=== PATIENT | female | born 1980 | race Caucasian/White ===

== ENCOUNTER 2019-01-09 22:17 | Emergency (ER) | payer OTHER ==
[~2019-01-09] VITALS: Ht 149.9 cm; Wt 90.7 kg
[2019-01-09 22:26] VITALS: BP 141/96
== END 2019-01-09 23:13 | disposition home or self-care (01) ==
LOC: ER 22:23
DX: K04.7 Periapical abscess without sinus (principal); K02.9 Dental caries, unspecified

== ENCOUNTER 2020-04-23 18:51 | Emergency (ER) | payer OTHER ==
[~2020-04-23] VITALS: Ht 149.9 cm; Wt 90.7 kg
[2020-04-23 19:30] VITALS: BP 139/93
--- NOTE | 2020-04-23 20:13 | NUR ---
COVID SWAB COLLECTED AND SENT TO LAB
--- NOTE | 2020-04-23 20:38 | NUR ---
Patient discharged to home in stable condition. Written and verbal after care instructions given. Patient verbalizes understanding of instruction.
== END 2020-04-23 20:39 | disposition home or self-care (01) ==
LOC: ER 18:54
DX: B34.9 Viral infection, unspecified (principal); R50.9 Fever, unspecified; Z20.828 Contact with and (suspected) exposure to other viral communicable diseases; R19.7 Diarrhea, unspecified

== ENCOUNTER 2020-04-29 00:54 | Inpatient (IN) | payer OTHER ==
[~2020-04-29] VITALS: Ht 149.9 cm; Wt 93.4 kg
[2020-04-29] MEDS ORDERED: ONDANSETRON HCL/PF 4 MG/2 ML VIAL ONE (01:29)
[2020-04-29] MEDS ORDERED: MORPHINE SULFATE INJ 4 MG/ML DISP.SYRIN ONE (01:29)
[2020-04-29] MEDS ORDERED: IV NS 0.9% 1,000 ML BAG IV ONE (01:30)
[2020-04-29] MEDS ORDERED: MORPHINE SULFATE INJ 2 MG/ML DISP.SYRIN IV ONE (01:30)
[2020-04-29] MEDS ORDERED: ONDANSETRON HCL/PF 4 MG/2 ML VIAL IVP ONE (01:30)
--- NOTE | 2020-04-29 01:35 | NUR ---
DR LUND IS AT THE BEDSIDE FOR EVAL.
--- NOTE | 2020-04-29 01:35 | NUR ---
PT PRESENTED TO THE ER WITH A C/O RLQ INTERMITTENT ABD PAIN. PT STATED THAT THE PAIN WAS SHARP. PT IS C/O PAIN WHEN SHE SITS ON THE GURNEY. PT WAS CONNECTED TO THE MONITOR AND POX. RESP ARE EVEN AND UNLABORED.
--- NOTE | 2020-04-29 01:37 | NUR ---
18G IV STARTED IN LAC. BLOOD WAS DRAWN AND SENT TO LAB.
--- NOTE | 2020-04-29 01:39 | NUR ---
PT REC'D NAUSEA MEDICATION ORDERED. PT DENIES PAIN AT THIS TIME. MORPHINE HELD AT PT'S REQUEST.
[2020-04-29 01:44] LABS: BASOPHILS # (AUTO) 0.1 /CMM (0.0-0.2); BASOPHILS % (AUTO) 0.2 % (0.0-2.0); EOSINOPHILS % (AUTO) 1.3 % (0.0-6.0); HEMATOCRIT 36 % (33-45); HEMOGLOBIN 11.4 g/dL (11.5-14.8); LYMPHOCYTES % (AUTO) 7.5 % (20.0-44.0); MEAN CORPUSCULAR HGB CONC 32 g/dl (31.0-36.0); MEAN CORPUSCULAR VOLUME 73 fL (82-100); MONOCYTES # (AUTO) 0.7 /CMM (0.1-1.30); MONOCYTES % (AUTO) 2.6 % (2.0-12.0); NEUTROPHILS % (AUTO) 88.4 % (43.0-81.0); PLATELET COUNT (AUTO) 755 /CMM (150-450); RED BLOOD CELL COUNT(AUTO) 4.91 MIL/uL (4.0-5.2); WHITE BLOOD COUNT (AUTO) 27.1 K/uL (4.3-11.0)
--- NOTE | 2020-04-29 02:00 | NUR ---
CALLING PT'S DAUGHTER, BHARATH, TO GIVE HER AN UPDATE. BHARATH WAS REACHED AND NOTIFIED.
--- NOTE | 2020-04-29 02:01 | NUR ---
BHARATH CAN BE REACHED AT
[2020-04-29] MEDS ORDERED: IOHEXOL-300 100 ML VIAL IV ONE (02:05)
[2020-04-29 02:06] LABS: APPEARANCE,URINE CLEAR (CLEAR); BILIRUBIN,URINE NEGATIVE (NEGATIVE); BLOOD, URINE NEGATIVE Ery/uL (NEGATIVE); COLOR,URINE YELLOW (YELLOW); KETONES,URINE NEGATIVE (NEGATIVE); LEUKOCYTE ESTERASE ,URINE NEGATIVE (NEGATIVE); NITRITE, URINE NEGATIVE (NEGATIVE); PROTEIN,URINE NEGATIVE (NEGATIVE); UGLUCOSE NEGATIVE (NEGATIVE); UROBILINOGEN,URINE 0.2 EU/dL (0.2)
[2020-04-29] MEDS ORDERED: CT SWABBABLE VALVE TRANS SET 1 EA INFUS.SET MC ONE (02:06)
[2020-04-29] MEDS ORDERED: IV NS 0.9% 250 ML IV ONE (02:06)
--- NOTE | 2020-04-29 02:16 | NUR ---
PT WAS CRYING WITH THE RT SIDED ABD PAIN. PT WAS ASKED IF SHE WANTED THE MORPHINE THAT WAS HELD FOR HER EARLIER. PT AGREED TO PAIN MEDICATION.
--- NOTE | 2020-04-29 02:20 | NUR ---
PT IS CRYING WITH THE PAIN. IT'S ON THE LLQ OF THE ABD AND RADIATING TO THE BACK. PT IS ON THE MONITOR AND CONTINUOUS PULSE OX.
--- NOTE | 2020-04-29 02:21 | NUR ---
PT IS STILL MOANING WITH PAIN. PT STATED THAT IT'S LIKE CONTRACTIONS.
[2020-04-29] MEDS ORDERED: KETOROLAC TROMETHAMINE INJ 30 MG/ML VIAL ONE (02:25)
[2020-04-29] MEDS ORDERED: KETOROLAC TROMETHAMINE INJ 30 MG/ML VIAL IV ONE (02:30)
[2020-04-29 03:15] LABS: CALCIUM, SERUM 9.2 mg/dL (8.5-10.1); POTASSIUM 3.7 mmol/L (3.5-5.1)
[2020-04-29 03:20] LABS: ALBUMIN 3.3 g/dL (3.4-5.0); BILIRUBIN,TOTAL 0.1 mg/dL (0.2-1.0); TOTAL PROTEIN, SERUM 8.7 g/dL (6.4-8.2)
--- NOTE | 2020-04-29 03:28 | NUR ---
PT LEFT FOR CT.
--- NOTE | 2020-04-29 03:47 | NUR ---
PT RETURNED FROM CT.
--- NOTE | 2020-04-29 04:14 | NUR ---
PT HAS TO USE THE BATHROOM. PT WAS DISCONNECTED FROM THE MONITOR AND POX. PT AMBULATED TO THE BATHROOM WITH A SLOW STEADY GAIT.
--- NOTE | 2020-04-29 04:19 | NUR ---
PT RETURNED FROM THE BATHROOM.
--- NOTE | 2020-04-29 05:30 | NUR ---
PT REQUESTED A CUP OF WATER. PT REC'D A CUP OF WATER AND TOLERATED PO WELL.
--- NOTE | 2020-04-29 05:47 | NUR ---
PT HAD A NEGATIVE COVID 19 TEST SWAB WAS DONE ON THE .
[2020-04-29 05:51] LABS: EOSINOPHILS % (MANUAL) 2 % (0-4); LYMPHOCYTES % (MANUAL) 8 % (16-48); MONOCYTES % (MANUAL) 2 % (0-11.0); NEUTROPHILS % (MANUAL) 88 (42-76)
[2020-04-29] MEDS ORDERED: PIPERACILLIN /TAZOBACTAM 3.375 G VIAL IV ONE (05:59)
[2020-04-29] MEDS ORDERED: PIPERACILLIN /TAZOBACTAM 3.375 G in IV D5W 50 ML IV ONE (06:00)
--- NOTE | 2020-04-29 06:10 | NUR ---
DR GURROLA IS AT THE BEDSIDE UPDATING THE PT RE: TRANSFER TO ANOTHER HOSPITAL.
--- NOTE | 2020-04-29 06:42 | NUR ---
PT STATED THAT SHE IS HAVING INTERMITTENT STABBING PAIN. PT DOES NOT WANT MEDICATION AT THIS TIME.
--- NOTE | 2020-04-29 06:45 | NUR ---
REC'D NEG COVID RESULTS. AWARE
--- NOTE | 2020-04-29 08:27 | NUR ---
called dr. suárez
--- NOTE | 2020-04-29 08:31 | NUR ---
CALLED FOR MS BED.
--- NOTE | 2020-04-29 08:59 | NUR ---
GOT BED 326-2
--- NOTE | 2020-04-29 09:05 | NUR ---
REPORT GIVEN TO VIC NUNEZ FOR KUMAR
--- NOTE | 2020-04-29 09:12 | NUR ---
wheeled patient via gurney accompanied by EMT, in no distress. RN at bedside to assume care.
[2020-04-29 09:15] VITALS: BP 123/72
--- NOTE | 2020-04-29 09:15 | NUR ---
MS RN NOTES PATIENT ARRIVED TO THE UNIT VIA GURNEY FROM THE EMERGENCY DEPARTMENT. PATIENT ALERT AND ORIENTED X 4. ON ROOM AIR WITH NO SIGNS OF RESPIRATORY DISTRESS AT THIS TIME, WITH EVEN NON-LABORED BREATHING AND NO SOB NOTES. PATIENT AMBULATORY WITH STEADY GAIT. IV ACCESS INTACT AND PATENT ON LEFT AC 18 GAUGE SALINE LOCK. SKIN INTACT, WARM, AND DRY TO TOUCH. PROVIDED COMFORT MEASURES TO PATIENT. SAFETY PRECAUTION IMPLEMENTED WITH BED LOCKED, BED IN THE LOWEST POSITION, BILATERAL SIDE RAILS UP, AND CALL LIGHT WITHIN EASY REACH OF THE PATIENT. WILL CONTINUE TO MONITOR PATIENT.
[2020-04-29] MEDS ORDERED: HYDROMORPHONE INJ 0.5 MG/0.5 ML SYRINGE IV PRN (09:30)
[2020-04-29] MEDS ORDERED: ONDANSETRON HCL/PF 4 MG/2 ML VIAL IV PRN (09:30)
[2020-04-29] MEDS ORDERED: ZOLPIDEM TARTRATE 5 MG TABLET PO PRN (09:30)
[2020-04-29] MEDS: PANTOPRAZOLE 40 MG VIAL IV SCH (10:29)
[2020-04-29] MEDS: LEVOFLOXACIN 750 MG /D5W 150ML 750 MG in PREMIX 1 EA IV SCH (11:45)
[2020-04-29] MEDS: Potassium Chloride 10 MEQ in IV NS 0.9% 1,000 ML IV PRN (11:45)
[2020-04-29] MEDS ORDERED: PIPERACILLIN /TAZOBACTAM 3.375 G in IV D5W 50 ML IV SCH (12:00)
[2020-04-29] MEDS: METRONIDAZOLE 500MG/ NS 100ML 500 MG in PREMIX 1 EA IV SCH ×2 (12:13→18:50)
--- NOTE | 2020-04-29 13:15 | NUR ---
MS RN NOTES ACCOMPANIED, CAS HUMPHRIES NP, AT BEDSIDE FOR PELVIC EXAM. PER PRINTING PRESSMAN RECOMMENDED CONSULTATION FOR TRAFFIC OR SYSTEM DISPATCHER. WILL CONTINUE TO MONITOR PATIENT.
--- NOTE | 2020-04-29 15:15 | NUR ---
Social service consult requested by MD for Advance Directives. Per MD notes, pt is a 40 years old female with no significant past medical history presents with nausea, vomiting, diarrhea and diffuse abdominal pain started after she ate some pizza on 04/19/2020 and she developed fever and chills 2 days after. She came to [facility] ER on 04/23/2020, diagnosed as viral syndrome, COVID-19 was negative. Symptoms gradually gets worse as abdominal pain but no nausea or vomiting, still with diarrhea. LAWN MAINTENANCE WORKER conducted chart review and called the pt on her cell phone. LAWN MAINTENANCE WORKER introduced self, explained the role of the SW and purpose of the call. Pt is alert and oriented x 4 with appropriate affect. Pt appeared to be in some pain and stated she is able to carry on the conversation. LAWN MAINTENANCE WORKER educated the pt on Advance Directives. LAWN MAINTENANCE WORKER then, met with the pt bedside and gave her a blank AD form. LAWN MAINTENANCE WORKER provided active listening and supportive counseling. Fretted Instrument Inspector is available for support as needed.
--- NOTE | 2020-04-29 15:40 | NUR ---
MS RN NOTES INFORMED DR. PIERCE, FOR HUMAN RESOURCES TRAINING MANAGER CONSULTATION AND PER DR. PIERCE ORDERED PELVIC ULTRASOUND. DR GIBSON MD MADE AWARE. WILL CONTINUE TO MONITOR PATIENT.
[2020-04-29 16:24] VITALS: BP 127/76
[2020-04-29] MEDS ORDERED: HYDROMORPHONE 1 MG/1 ML DISP.SYRIN IV PRN (17:05)
--- NOTE | 2020-04-29 18:48 | NUR ---
MS RN NOTES PATIENT CURRENTLY SLEEPING COMFORTABLY, EASILY AWAKEN BY NAME AND LIGHT TOUCH. ON ROOM AIR WITH NO SIGNS OF RESPIRATORY DISTRESS AT THIS TIME, WITH EVEN NON-LABORED BREATHING AND NO SOB NOTES. PATIENT AMBULATORY WITH STEADY GAIT. IV ACCESS INTACT AND PATENT ON LEFT AC 18 GAUGE SALINE LOCK. SKIN KEPT CLEAN, WARM, AND DRY TO TOUCH. PROVIDED COMFORT MEASURES TO PATIENT. MET ALL OF PATIENT'S NEEDS. SAFETY PRECAUTIONS IMPLEMENTED WITH BED LOCKED, BED IN THE LOWEST POSITION, BILATERAL SIDE RAILS UP, AND CALL LIGHT WITHIN EASY REACH OF THE PATIENT. WILL ENDORSE PLAN OF CARE UPCOMING NURSE.
--- NOTE | 2020-04-29 19:00 | NUR ---
RN medsurg opening notes Received Pt from morning nurse. Pt is resting in bed comfortably. Pt is alert and orientedX4. Respiration is even and unlabored. No SOB. No S/S of distress noted. IV sites at LAC# 18 is clean, intact, patent and infusing well potassium [id number] meq in IV NS @ 100ml/hr. Pt is able to ambulate with a steady gait. Pt status is NPO. Pt verbalized understanding. Safety precautions is maintained. Bed at low position, brakes locked, side rails upX2 and call light is within reach. Will continue to monitor.
[2020-04-29 20:00] VITALS: BP 135/70
[2020-04-29 20:12] VITALS: BP 135/70
[2020-04-30] MEDS: METRONIDAZOLE 500MG/ NS 100ML 500 MG in PREMIX 1 EA IV SCH ×2 (02:35→11:13)
[2020-04-30] MEDS: Potassium Chloride 10 MEQ in IV NS 0.9% 1,000 ML IV PRN (03:45)
[2020-04-30 04:05] VITALS: BP 134/84
--- NOTE | 2020-04-30 06:40 | NUR ---
RN medsurg closing notes Pt is resting in bed comfortably. Pt is alert and orientedX4. Respiration is even and unlabored. No SOB. No S/S of distress noted. Routine meds were given as ordered. VS is stable. IV sites at LAC# 18 is clean, intact, patent and infusing well potassium [id number] meq in IV NS @ 100ml/hr. Pt status is NPO. All needs met and attended. Safety precautions is maintained. Bed at low position, brakes locked, side rails upX2 and call light is within reach. Will endorse to morning for KUMAR.
[2020-04-30 08:00] VITALS: BP 108/62
--- NOTE | 2020-04-30 08:00 | NUR ---
m/s food and nutrition teacher: initial assessment received pt in bed awake, a/ox4; ambulatory. remains npo, for possible surgery. awaiting for obgyn consult to see her. no c/o pain at this time. instructed to call for assistance. will continue to monitor.
[2020-04-30 08:06] LABS: BASOPHILS # (AUTO) 0.1 /CMM (0.0-0.2); BASOPHILS % (AUTO) 0.4 % (0.0-2.0); EOSINOPHILS % (AUTO) 1.9 % (0.0-6.0); HEMATOCRIT 30 % (33-45); HEMOGLOBIN 9.6 g/dL (11.5-14.8); LYMPHOCYTES # (AUTO) 1.6 /CMM (0.8-4.8); LYMPHOCYTES % (AUTO) 11.1 % (20.0-44.0); MEAN CORPUSCULAR HGB CONC 32 g/dl (31.0-36.0); MEAN CORPUSCULAR VOLUME 73 fL (82-100); MONOCYTES # (AUTO) 0.6 /CMM (0.1-1.30); MONOCYTES % (AUTO) 4.2 % (2.0-12.0); NEUTROPHILS # (AUTO) 11.9 /CMM (1.8-8.9); NEUTROPHILS % (AUTO) 82.4 % (43.0-81.0); PLATELET COUNT (AUTO) 613 /CMM (150-450); RED BLOOD CELL COUNT(AUTO) 4.17 MIL/uL (4.0-5.2); WHITE BLOOD COUNT (AUTO) 14.5 K/uL (4.3-11.0)
[2020-04-30 08:25] LABS: ALBUMIN 2.4 g/dL (3.4-5.0); BILIRUBIN,TOTAL 0.3 mg/dL (0.2-1.0); CALCIUM, SERUM 8.7 mg/dL (8.5-10.1); CREATININE 0.7 mg/dL (0.6-1.3); MAGNESIUM 2.1 mg/dL (1.8-2.4); POTASSIUM 3.6 mmol/L (3.5-5.1); TOTAL PROTEIN, SERUM 6.8 g/dL (6.4-8.2)
--- NOTE | 2020-04-30 08:29 | NUR ---
m/s email marketing manager: md visit seen and examined by dr. suárez with new orders. orders acknowledged.
[2020-04-30] MEDS: PANTOPRAZOLE 40 MG VIAL IV SCH (08:57)
--- NOTE | 2020-04-30 09:00 | NUR ---
RN NOTES ADMINISTERED DILAUDID 1 MG/ML IV PUSG FOR BLE ACHING PAIN 03/20 PER PATIENT REQUEST, ALSO ADMINISTERED ZOFRAN 4 MG/ML IV PUSH FOR NAUSEA. V/S TAKEN BP-108/62, P-84, R-18. CONTINUED MONITORING.
--- NOTE | 2020-04-30 09:30 | NUR ---
m/s custodial aide: notes pt sounds asleep. resp. even and unlabored. no distress noted. will continue to monitor.
[2020-04-30] MEDS: LEVOFLOXACIN 750 MG /D5W 150ML 750 MG in PREMIX 1 EA IV SCH (10:28)
--- NOTE | 2020-04-30 12:00 | NUR ---
m/s tinware lithograph press operator: notes resting comfortable. no distress noted. remains npo.
--- NOTE | 2020-04-30 12:55 | NUR ---
m/s duct layer: notes aiyana (outsole caser) called and informed me that dr. suárez [facility] if they are not going to do the surgery as stated. informed her that we are waiting for dr. ko (obgyn consult) to see her. aiyana will call dr. suárez once more to clarify.
--- NOTE | 2020-04-30 13:10 | NUR ---
m/s cloud services architect: notes dr. suárez ask cn for dr. sands's number. dr. suárez wants to know if surgeon will do the surgery or not.
--- NOTE | 2020-04-30 13:15 | NUR ---
m/s aeronautical engineering professor: notes dr. suárez called and informed me that dr. sands will do the surgery today and have her sign the consent for laparoscopic appendectomy. order read back and carried out. pt made aware and change consent for laparoscopic appendectomy. pt verbalized understanding. new consent signed at 1320.
[2020-04-30] MEDS ORDERED: ANESTHESIA TRAY IN PYXIS 1 EA TRAY MC ONE (13:41)
[2020-04-30] MEDS ORDERED: LIDOCAINE HCL/MPF 1% 30 ML VIAL IJ ONE (13:41)
[2020-04-30] MEDS ORDERED: BUPIVACAINE MPF 0.5% W/EPI INJ 30 ML VIAL ONE (13:42)
--- NOTE | 2020-04-30 13:58 | NUR ---
m/s revenue stamp cutter: notes picked up via bed to o.r. at this time, accompanied by o.r. nurses.
--- NOTE | 2020-04-30 14:15 | NUR ---
m/s music engineer: notes dr. ko (obgyn) here and informed her that pt is in surgery, stated, "i don't need to see her because she is in surgery."
[2020-04-30] MEDS ORDERED: HYDROMORPHONE INJ 2 MG/ML DISP.SYRIN ONE (14:18)
[2020-04-30] MEDS ORDERED: ROCURONIUM BROMIDE 50 MG/5 ML ONE (14:19)
[2020-04-30] MEDS ORDERED: MIDAZOLAM HCL 2 MG/2ML VIAL ONE (14:19)
[2020-04-30] MEDS ORDERED: BACITRACIN ZINC OINT PACKET 1 EA PACKET TP ONE (16:34)
[2020-04-30 17:25] VITALS: BP 124/76
--- NOTE | 2020-04-30 17:25 | NUR ---
m/s dhiraj: notes received pt from recovery room with dx: s/p laparoscopy appendectomy, right and left salpingotomy, small bowel adhesions with sosa drain to left side of abdomen, surgical dressing in place. pt has minimal discomfort, but wish no pain med at this time. orders faxed to rx by pam (recovery nurse). Addendum: 04/30/20 at 1743 by BECKY LINARES LVN provided o2 at 2l/min via n/c due to pt appears sleepy.
[2020-04-30 17:40] VITALS: BP 126/71
--- NOTE | 2020-04-30 17:45 | NUR ---
m/s import customer service manager: notes post op orders re faxed to pharmacy.
--- NOTE | 2020-04-30 18:00 | NUR ---
m/s oxide furnace tender: notes clear liquid diet served. instructed to call for assistance.
[2020-04-30 18:10] VITALS: BP 117/66
[2020-04-30] MEDS ORDERED: ONDANSETRON HCL/PF 4 MG/2 ML VIAL IVP PRN (18:30)
[2020-04-30] MEDS ORDERED: HYDROMORPHONE 1 MG/1 ML DISP.SYRIN IV PRN (18:30)
[2020-04-30] MEDS: IV LR 1000 ML 1,000 ML IV PRN (18:35)
--- NOTE | 2020-04-30 19:00 | NUR ---
m/s chemistry research assistant: notes sosa drained with 100ml of sanguineous fluid. surgical dressing to abdomen intact, clean, and dry. needs attended. instructed to call for assistance.
--- NOTE | 2020-04-30 19:05 | NUR ---
m/s door and arrival attendant: notes report given to mercedez (norris) for continuity of care.
--- NOTE | 2020-04-30 19:40 | NUR ---
MS RN NOTES PATIENT IN BED, AWAKE, ALERT AND ORIENTED X 4. BREATHING EVEN AND UNLABORED ON 2L NC. SHOWS NO SIGNS OF ACUTE RESPIRATORY DISTRESS. NO ACUTE PAIN. PT HAS 3 LAP BRITNEY SITES WITH CLEAN DRESSING. AND ISSAC DRAIN ON L SIDE WITH SEROSANGUINEOUS FLUID DRAINING. IV ON L ARM 20G RUNNING LR AT 100ML/HR. SHOWS NO SIGNS OF INFILTRATION, NO REDNESS. SAFETY PRECAUTIONS IN PLACE. BED IN LOWEST POSITION, LOCKED, AND CALL LIGHT KEPT WITHIN REACH. WILL CONTINUE TO MONITOR.
[2020-04-30] MEDS: ZOSYN IVPB 3.375 G in IV D5W 50ml IV SCH (19:54)
[2020-04-30 20:00] VITALS: BP 129/69
[2020-04-30] MEDS: HYDROCODONE/APAP 10/325MG 1 EA TABLET PO PRN (21:30)
[2020-05-01] MEDS: ZOSYN IVPB 3.375 G in IV D5W 50ml IV SCH ×4 (00:04→17:04)
--- NOTE | 2020-05-01 06:36 | NUR ---
MS RN NOTES PATIENT IN BED, ASLEEP, ALERT AND ORIENTED X 4. BREATHING EVEN AND UNLABORED ON 2L NC. SHOWS NO SIGNS OF ACUTE RESPIRATORY DISTRESS. NO ACUTE PAIN. PT HAS 3 LAP BRITNEY SITES WITH CLEAN DRESSING. AND ISSAC DRAIN ON L SIDE WITH SEROSANGUINEOUS FLUID DRAINING TOTAL OF 150ML OUT DURING SHIFT. IV ON LAC 20G RUNNING LR AT 100ML/HR. SHOWS NO SIGNS OF INFILTRATION, NO REDNESS. ALL DUE MEDICATIONS GIVEN. SAFETY PRECAUTIONS IN PLACE. BED IN LOWEST POSITION, LOCKED, AND CALL LIGHT KEPT WITHIN REACH. WILL ENDORSE TO ONCOMING NURSE.
--- NOTE | 2020-05-01 07:30 | NUR ---
RN Opening note Received patient in bed, AO x 4 able to responds all stimuli. S/p LAP ISSAC drainage 60ml at his time. Skin is warm to touch, intact IV site and kept clean/dry. Respiratory even and unlabored in room air. Keep bed in lock with elevated HOB for ensure airway and aspiration precaution. Call light within reach, will continue to monitor.
[2020-05-01 07:50] LABS: BASOPHILS % (AUTO) 0.1 % (0.0-2.0); EOSINOPHILS % (AUTO) 0.1 % (0.0-6.0); HEMATOCRIT 31 % (33-45); HEMOGLOBIN 9.5 g/dL (11.5-14.8); LYMPHOCYTES # (AUTO) 1.1 /CMM (0.8-4.8); LYMPHOCYTES % (AUTO) 6.4 % (20.0-44.0); MEAN CORPUSCULAR HGB CONC 31 g/dl (31.0-36.0); MEAN CORPUSCULAR VOLUME 73 fL (82-100); MONOCYTES # (AUTO) 0.5 /CMM (0.1-1.30); MONOCYTES % (AUTO) 2.6 % (2.0-12.0); NEUTROPHILS % (AUTO) 90.8 % (43.0-81.0); PLATELET COUNT (AUTO) 682 /CMM (150-450); WHITE BLOOD COUNT (AUTO) 17.7 K/uL (4.3-11.0)
[2020-05-01 08:00] VITALS: BP 130/73
[2020-05-01 08:06] LABS: CALCIUM, SERUM 9.3 mg/dL (8.5-10.1); CREATININE 0.8 mg/dL (0.6-1.3); MAGNESIUM 2.1 mg/dL (1.8-2.4); PHOSPHORUS 3.4 mg/dL (2.5-4.9); POTASSIUM 3.7 mmol/L (3.5-5.1)
[2020-05-01] MEDS: HYDROCODONE/APAP 10/325MG 1 EA TABLET PO PRN (08:39)
[2020-05-01] MEDS: PANTOPRAZOLE 40 MG VIAL IV SCH (08:39)
[2020-05-01] MEDS: METOCLOPRAMIDE HCL 10 MG/2 ML VIAL IV SCH ×3 (13:13→23:49)
[2020-05-01 16:00] VITALS: BP 147/74
[2020-05-01] MEDS: ACETAMINOPHEN 650 MG/20.3 ML UDC NG PRN ×2 (16:14→20:37)
--- NOTE | 2020-05-01 18:18 | NUR ---
RN Closing note Patient in bed comfortably, no s/s of distress observed, pt c/o abd pain for s/p procedure, given Tylenol. Skin is warm to touch, kept clean/dry, intact IV site, ISSAC drain out 130cc total with purulent appearance. Respiratory even and unlabored in room air. Keep bed in lock with elevated HOB for ensure airway and aspiration precaution. Call light within reach, will endorse film processing shift supervisor.
--- NOTE | 2020-05-01 19:45 | NUR ---
ms director of exhibits initial notes received pt in bed resting with eyes closed, respiration even and non-labored , not in any discomfort. she still with IVF NS at 75ml/hr infusing at this time. saw sosa draining yellowish output noted. kept her warm and comfortable at all times. place call light at reach. will continue monitoring. place call light at reach.
[2020-05-01 20:00] VITALS: BP 113/62
--- NOTE | 2020-05-01 20:40 | NUR ---
ms dhiraj notes pt called and asking for pain meds, tylenol po given as ordered. will continue monitoring.
--- NOTE | 2020-05-02 | NUR ---
ms dhiraj notes' routine meds given and zosyn ivp bag will hung by another nurse. will continue monitoring.
[2020-05-02] MEDS: ZOSYN IVPB 3.375 G in IV D5W 50ml IV SCH ×4 (00:13→20:44)
[2020-05-02] MEDS: HYDROCODONE/APAP 10/325MG 1 EA TABLET PO PRN (03:15)
--- NOTE | 2020-05-02 03:15 | NUR ---
ON CALL PHARMACY TECHNICIAN PAIN MGT C/O ABDOMINAL PAIN 05/20 NORCO TABLET GIVEN ORDERED. NO N/V NOTED. NO DIZZINESS NOTED.
--- NOTE | 2020-05-02 05:15 | NUR ---
SOFTWARE MANAGER NOTES PT SLEEPING AT THIS TIME, RESPIRATION EVEN AND NON-LABORED WITH IVF STILL INFUSING AT THIS TIME. KEPT HER WARM AND COMFORTABLE AT ALL TIMES. WILL CONTINUE MONITORING. PLACE CALL LIGHT AT REACH.
[2020-05-02] MEDS: METOCLOPRAMIDE HCL 10 MG/2 ML VIAL IV SCH (05:51)
[2020-05-02] MEDS: IV LR 1000 ML 1,000 ML IV PRN (06:03)
[2020-05-02 07:04] LABS: BASOPHILS # (AUTO) 0.1 /CMM (0.0-0.2); BASOPHILS % (AUTO) 0.7 % (0.0-2.0); EOSINOPHILS % (AUTO) 3.1 % (0.0-6.0); HEMATOCRIT 28 % (33-45); HEMOGLOBIN 9.1 g/dL (11.5-14.8); LYMPHOCYTES # (AUTO) 2.7 /CMM (0.8-4.8); LYMPHOCYTES % (AUTO) 24.2 % (20.0-44.0); MEAN CORPUSCULAR HGB CONC 32 g/dl (31.0-36.0); MEAN CORPUSCULAR VOLUME 72 fL (82-100); MONOCYTES # (AUTO) 0.5 /CMM (0.1-1.30); MONOCYTES % (AUTO) 4.8 % (2.0-12.0); NEUTROPHILS # (AUTO) 7.6 /CMM (1.8-8.9); NEUTROPHILS % (AUTO) 67.2 % (43.0-81.0); PLATELET COUNT (AUTO) 696 /CMM (150-450); RED BLOOD CELL COUNT(AUTO) 3.93 MIL/uL (4.0-5.2); WHITE BLOOD COUNT (AUTO) 11.2 K/uL (4.3-11.0)
[2020-05-02 07:15] LABS: CALCIUM, SERUM 8.3 mg/dL (8.5-10.1); CREATININE 0.8 mg/dL (0.6-1.3); MAGNESIUM 2.1 mg/dL (1.8-2.4); POTASSIUM 3.5 mmol/L (3.5-5.1)
--- NOTE | 2020-05-02 07:34 | NUR ---
ms strawhat inspector and packer closing notes pt resting comfortable after pain meds given earlier. all due meds given and all needs met. IVF still infusing, kept her warm and comfortable at all times. place call light at reach. Endorse to am nurse for continuity of care.
--- NOTE | 2020-05-02 07:46 | NUR ---
MS/RN Opening note Patient received from maintenance supervisor 2nd shift. Sleeping soundly at this time, appears in no distress or discomfort. Will continue to monitor and ensure safety.
[2020-05-02 08:00] VITALS: BP 132/81
[2020-05-02] MEDS: PANTOPRAZOLE 40 MG VIAL IV SCH (08:17)
--- NOTE | 2020-05-02 09:59 | NUR ---
MS/RN S/B Dr Christian Seen by MD Jacinta cm ordered, first dose scheduled for 10a. Continue with current plan of care.
[2020-05-02] MEDS: ENOXAPARIN SODIUM 40 MG/0.4 ML DISP.SYRIN SQ SCH (10:00)
--- NOTE | 2020-05-02 12:55 | NUR ---
MS/RN Pain Complaining of abdominal pain, tylenol 650mg administered as ordered.
[2020-05-02] MEDS: ACETAMINOPHEN 650 MG/20.3 ML UDC NG PRN ×2 (12:59→20:46)
--- NOTE | 2020-05-02 13:00 | NUR ---
MS/RN IVAB IVAB zosyn infusing as ordered, no reaction noted.
--- NOTE | 2020-05-02 15:37 | NUR ---
MS/RN Rounds Patient appears comfortable at this time, in no distress. Will continue to monitor and ensure safety.
[2020-05-02 16:00] VITALS: BP 124/73
[2020-05-02 16:01] VITALS: BP 124/73
--- NOTE | 2020-05-02 18:28 | NUR ---
MS/RN End note Patient remains in stable condition. Dressings changed, all lap sites clean and dry. Output from ISSAC drain this shift 80ml. No complaints of pain at this time. Will continue to monitor and endorse to cnc machinist 2nd shift.
--- NOTE | 2020-05-02 19:25 | NUR ---
MS RN NOTES RECEIVED ON BED A/O X4,TALKING TO SOMEBODY ON HER CP.S/P LAPAROSCOPIC APPENDECTOMY ON 04/30,WITH 3 LAP APPY SITE,DRESSING INTACT AND DRY,WITH ISSAC DRAIN ON LEFT LOWER ABDOMEN DRAINING SERO SANGUINOUS OUTPUT.DENIES PAIN AT THE MOMENT.CALL LIGHT IN REACH,NEEDS ANTICIPATED.
[2020-05-02 20:00] VITALS: BP 141/90
--- NOTE | 2020-05-02 20:46 | NUR ---
MS RN NOTES C/O MILD ABDOMINAL PAIN 3/10 ON PAIN SCALE.MEDICATED WITH TYLENOL 650MG PO ORDERED.
[2020-05-03] MEDS: ACETAMINOPHEN 650 MG/20.3 ML UDC NG PRN ×2 (03:20→09:16)
--- NOTE | 2020-05-03 03:20 | NUR ---
MS RN NOTES C/O MILD ABDOMINAL PAIN,TYLENOL 650MG PO GIVEN PER PATIENT REQUEST.
[2020-05-03] MEDS: ZOSYN IVPB 3.375 G in IV D5W 50ml IV SCH (04:56)
--- NOTE | 2020-05-03 06:09 | NUR ---
MS RN NOTES SLEEP WITH INTERVALS,BRP WITH STEADY GAIT.ISSAC DRAINS 40ML AT NIGHT.MEDICATED 2X WITH TYLENOL FOR MILD PAIN.SURGICAL LAP INCISION CLEAN AND DRY.IN NO ACUTE DISTRESS.WILL ENDORSE TO DAY NURSE FOR KUMAR.
--- NOTE | 2020-05-03 07:30 | NUR ---
PATIENT IS A/OX4, IN BED CALM. WITH NO SIGNS OF DISTRESS IN ROOM AIR. IV L AC #18G INTACT. SAFETY MEASURES ARE IN PLACE BED IS IN LOW POSITION LOCKED AND SIDE RAILS UP X 2 FOR SAFETY. CALL LIGHT IS WITHIN REACH.WILL CONTINUE TO MONITOR.
[2020-05-03 07:42] LABS: BASOPHILS # (AUTO) 0.1 /CMM (0.0-0.2); BASOPHILS % (AUTO) 0.8 % (0.0-2.0); EOSINOPHILS % (AUTO) 3.6 % (0.0-6.0); HEMATOCRIT 31 % (33-45); LYMPHOCYTES # (AUTO) 2.7 /CMM (0.8-4.8); LYMPHOCYTES % (AUTO) 27.6 % (20.0-44.0); MEAN CORPUSCULAR HGB CONC 32 g/dl (31.0-36.0); MEAN CORPUSCULAR VOLUME 72 fL (82-100); MONOCYTES # (AUTO) 0.5 /CMM (0.1-1.30); MONOCYTES % (AUTO) 5.4 % (2.0-12.0); NEUTROPHILS # (AUTO) 6.1 /CMM (1.8-8.9); NEUTROPHILS % (AUTO) 62.6 % (43.0-81.0); PLATELET COUNT (AUTO) 754 /CMM (150-450); RED BLOOD CELL COUNT(AUTO) 4.34 MIL/uL (4.0-5.2); WHITE BLOOD COUNT (AUTO) 9.7 K/uL (4.3-11.0)
[2020-05-03 08:00] VITALS: BP 139/88
[2020-05-03 08:18] LABS: CREATININE 0.7 mg/dL (0.6-1.3); POTASSIUM 3.4 mmol/L (3.5-5.1)
[2020-05-03] MEDS: PANTOPRAZOLE 40 MG VIAL IV SCH (09:16)
[2020-05-03] MEDS: ENOXAPARIN SODIUM 40 MG/0.4 ML DISP.SYRIN SQ SCH (09:17)
[2020-05-03] MEDS ORDERED: ACET-907 PO (09:25)
[2020-05-03] MEDS ORDERED: AMOX-430 PO (09:25)
[2020-05-03 10:22] LABS: BAND % (MANUAL) 2 % (0.0-5.0); EOSINOPHILS % (MANUAL) 4 % (0-4); LYMPHOCYTES % (MANUAL) 32 % (16-48); MONOCYTES % (MANUAL) 7 % (0-11.0); NEUTROPHILS % (MANUAL) 55 (42-76)
--- NOTE | 2020-05-03 11:00 | NUR ---
DISCHARGE NOTES PATIENT IS ALERT AND ORIENTED, STABLE AND IMPROVED WITH VITALS BP 139/88 HR 84 RESP 16 TEMPERATURE 98.2 AND SPO2 97%. BELONGING LIST WAS VERIFIED AND SIGNED. DISCHARGE EDUCATION WAS GIVEN, CONTINUE WITH MEDICATIONS, FOLLOW UP WITH PCP AND RETURN TO THE ER IN CASE OF AN EMERGENCY. PATIENT VERBALLY UNDERSTOOD DISCHARGE PLANNING EDUCATION. IV WAS REMOVED AND HOSPITAL WRIST BAND WELL. PATIENT WAS ABLE TO AMBULATE WITH NO COMPLICATIONS TO THE LOBBY ACCOMPANIED BY DAWNA KAUFMAN. FAMILY PICKED PATIENT UP.DISCHARGE PHOTOS WERE TAKEN OF THE ABDOMEN.
[2020-05-03] MEDS ORDERED: POTASSIUM CHLORIDE 20 MEQ TAB.PRT.SR PO ONE (13:00)
== END 2020-05-03 11:30 | disposition home or self-care (01) | DRG 224 ==
LOC: ER 00:56 → MED 09:05
PROVIDERS: ADMIT Internal Medicine; ATTEND Internal Medicine
PROC: 0DTJ4ZZ Resection of Appendix, Percutaneous Endoscopic Approach (ICD-10-PCS; principal; 2020-04-29)
PROC: 0UB54ZZ Excision of Right Fallopian Tube, Percutaneous Endoscopic Approach (ICD-10-PCS; principal; 2020-04-29)
PROC: 0DN84ZZ Release Small Intestine, Percutaneous Endoscopic Approach (ICD-10-PCS; principal; 2020-04-29)
DX: K35.20 Acute appendicitis with generalized peritonitis, without abscess (principal); N73.9 Female pelvic inflammatory disease, unspecified; N70.91 Salpingitis, unspecified; E66.9 Obesity, unspecified; Z68.41 Body mass index [BMI] 40.0-44.9, adult; N97.1 Female infertility of tubal origin; D72.829 Elevated white blood cell count, unspecified; K80.20 Calculus of gallbladder without cholecystitis without obstruction; D25.9 Leiomyoma of uterus, unspecified; K66.0 Peritoneal adhesions (postprocedural) (postinfection)
CPT/HCPCS: 36415; 76856-TC; 80048-TC; 80053-TC; 80076-TC; 81000-TC; 83690-TC; 83735-TC; 84100-TC; 84703-TC; 85025-TC; 85610-TC; 85730-TC; 87070-TC; 87075-TC; 87081-TC; 88304-TC; 88305-TC; A4216; A6403; C9113; G0378; J0330; J0690; J1100; J1170; J1650; J1885; J1956; J2250; J2270; J2405; J2543; J2704; J2765; J3480; J3490; J7030; J7050; J7060; J7120; Q9967

== ENCOUNTER 2023-02-24 14:48 | Emergency (ER) | payer OTHER ==
[~2023-02-24] VITALS: Ht 149.9 cm; Wt 107.0 kg
[~2023-02-24 14:48] MED LIST: ACET-907 PO; AMOX-430 PO
[2023-02-24] MEDS ORDERED: diphenhydrAMINE HCL 50 MG/ML VIAL ONE (15:22)
[2023-02-24] MEDS ORDERED: PROCHLORPERAZINE EDISYLATE 10 MG/2 ML VIAL ONE (15:22)
[2023-02-24] MEDS ORDERED: PROCHLORPERAZINE EDISYLATE 10 MG/2 ML VIAL IVP ONE (15:30)
[2023-02-24] MEDS ORDERED: IV NS 0.9% 1,000 ML BAG IV ONE (15:30)
[2023-02-24] MEDS ORDERED: diphenhydrAMINE HCL 50 MG/ML VIAL IV ONE (15:30)
--- NOTE | 2023-02-24 15:40 | NUR ---
BLOOD DRAWN AND COVID19 SENT TO LAB
--- NOTE | 2023-02-24 15:50 | NUR ---
PATIENT TAKEN TO CT VIA [facility]
--- NOTE | 2023-02-24 15:54 | NUR ---
BIBS c/o headache and lower back pain x 1 week 06/20 ps. AMBULATORY, PLACED IN BED, AAOX4, BREATHING EVEN AND UNLABORED SATURATING AT 98%RA
[2023-02-24 16:00] LABS: BASOPHILS # (AUTO) 0.1 K/uL (0.0-0.2); BASOPHILS % (AUTO) 0.8 % (0.0-2.0); EOSINOPHILS % (AUTO) 1.1 % (0.0-6.0); HEMATOCRIT 37 % (33-45); HEMOGLOBIN 11.7 g/dL (11.5-14.8); LYMPHOCYTES # (AUTO) 2.2 K/uL (0.8-4.8); LYMPHOCYTES % (AUTO) 19.7 % (20.0-44.0); MEAN CORPUSCULAR HGB CONC 32 g/dl (31.0-36.0); MEAN CORPUSCULAR VOLUME 69 fL (82-100); MONOCYTES # (AUTO) 0.7 K/uL (0.1-1.30); MONOCYTES % (AUTO) 6.4 % (2.0-12.0); NEUTROPHILS # (AUTO) 8.1 K/uL (1.8-8.9); PLATELET COUNT (AUTO) 466 K/uL (150-450); RED BLOOD CELL COUNT(AUTO) 5.26 MIL/uL (4.0-5.2); WHITE BLOOD COUNT (AUTO) 11.3 K/uL (4.3-11.0)
[2023-02-24 16:12] LABS: CALCIUM, SERUM 9.2 mg/dL (8.5-10.1); CREATININE 0.8 mg/dL (0.6-1.3); POTASSIUM 3.7 mmol/L (3.5-5.1)
[2023-02-24 16:18] LABS: ALBUMIN 3.9 g/dL (3.4-5.0); BILIRUBIN,DIRECT 0.1 mg/dL (0.0-0.2); BILIRUBIN,TOTAL 0.3 mg/dL (0.2-1.0); TOTAL PROTEIN, SERUM 8.1 g/dL (6.4-8.2)
[2023-02-24] MEDS ORDERED: MORPHINE SULFATE INJ 2 MG/ML DISP.SYRIN IV ONE (17:00)
[2023-02-24] MEDS ORDERED: ONDANSETRON HCL/PF 4 MG/2 ML VIAL IV ONE (17:00)
[2023-02-24] MEDS ORDERED: ONDANSETRON HCL/PF 4 MG/2 ML VIAL ONE (17:08)
[2023-02-24] MEDS ORDERED: MORPHINE SULFATE INJ 4 MG/ML DISP.SYRIN ONE (17:09)
[2023-02-24] MEDS ORDERED: IV NS 0.9% 250 ML IV ONE (18:08)
[2023-02-24] MEDS ORDERED: IOHEXOL-350 100 ML VIAL IV ONE (18:08)
[2023-02-24] MEDS ORDERED: CT SWABBABLE VALVE TRANS SET 1 EA INFUS.SET MC ONE (18:09)
--- NOTE | 2023-02-24 18:12 | NUR ---
SKYLER [phone]
--- NOTE | 2023-02-24 18:26 | NUR ---
CUONG [phone] REQUESTING CLINICALS FAXED TO [phone]
--- NOTE | 2023-02-24 20:33 | NUR ---
DR SAHU ON THE PHONE WITH DR MARCELINO FROM [facility]
[2023-02-24] MEDS ORDERED: NAPR-1164 PO (20:50)
--- NOTE | 2023-02-24 21:35 | NUR ---
IV removed. Catheter intact and site benign. Pressure and 4x4 applied to site. No bleeding noted.Patient discharged to home in stable condition. Written and verbal after care instructions given. Patient verbalizes understanding of instruction.
[2023-02-24 21:45] VITALS: BP 145/85
[2023-02-25 01:30] LABS: LYMPHOCYTES % (MANUAL) 20 % (16-48); NEUTROPHILS % (MANUAL) 73 (42-76)
[2023-02-25 01:31] LABS: BASOPHILS % (MANUAL) 0 % (0.0-2.0); EOSINOPHILS % (MANUAL) 2 % (0-4); MONOCYTES % (MANUAL) 5 % (0-11.0)
[2023-03-03 14:07] LABS: *METANEPHRINES, PL <10.0 pg/mL (0.0-88.0)
== END 2023-02-24 21:35 | disposition home or self-care (01) ==
LOC: ER 14:49
DX: D35.01 Benign neoplasm of right adrenal gland (principal); R51.9 Headache, unspecified; Z79.899 Other long term (current) drug therapy; Z20.822 Contact with and (suspected) exposure to COVID-19
CPT/HCPCS: 99285; 70450; 96374; 96375; 96361; 87426; 74176; 85025; 80048; 80076; 36415; 87081; 83835; 74160; 85007; J0780; J1200; J2270; J2405; J7050; Q9967; C9803; J7030